=== PATIENT | male | born 1965 | race Caucasian/White ===

== ENCOUNTER 2018-10-27 15:07 | Emergency (ER) | payer OTHER ==
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
[2018-10-27] MEDS ORDERED: Ibuprofen TAB* 400 MG PO ONE (16:05)
== END 2018-10-27 17:51 | disposition home or self-care (01) ==
LOC: UCEAST 15:07
DX: S13.9XXA Sprain of joints and ligaments of unspecified parts of neck, initial encounter (principal); S49.92XA Unspecified injury of left shoulder and upper arm, initial encounter; V43.52XA Car driver injured in collision with other type car in traffic accident, initial encounter; Y92.410 Unspecified street and highway as the place of occurrence of the external cause; M62.838 Other muscle spasm; M75.32 Calcific tendinitis of left shoulder; M50.322 Other cervical disc degeneration at C5-C6 level; M54.12 Radiculopathy, cervical region; I10 Essential (primary) hypertension; E11.9 Type 2 diabetes mellitus without complications; Z79.84 Long term (current) use of oral hypoglycemic drugs; E78.5 Hyperlipidemia, unspecified; M51.36 Other intervertebral disc degeneration, lumbar region; Z87.891 Personal history of nicotine dependence
CPT/HCPCS: 72125; 99203; A9270-GY; G0463

== ENCOUNTER 2018-11-02 16:52 | Emergency (ER) | payer OTHER ==
[2018-11-02 18:28] VITALS: BP 150/95
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
== END 2018-11-02 18:30 | disposition home or self-care (01) ==
LOC: ED 16:52
DX: S44.92XA Injury of unspecified nerve at shoulder and upper arm level, left arm, initial encounter (principal); V49.40XA Driver injured in collision with unspecified motor vehicles in traffic accident, initial encounter; W22.12XA Striking against or struck by front passenger side automobile airbag, initial encounter; Y92.410 Unspecified street and highway as the place of occurrence of the external cause; I10 Essential (primary) hypertension; E11.49 Type 2 diabetes mellitus with other diabetic neurological complication; Z87.891 Personal history of nicotine dependence
CPT/HCPCS: 70450; 99283